=== PATIENT | female | born 1985 | race Caucasian/White ===

== ENCOUNTER 2020-03-04 05:45 | Day surgery (SDC) | payer OTHER ==
[2020-03-01 09:36] LABS: HEMATOCRIT 40.7 % (36.0-47.0); HEMOGLOBIN 14.3 g/dL (12.0-15.5); MEAN CORPUSCULAR HGB CONC 35.2 g/dL (32.0-36.0); MEAN CORPUSCULAR VOLUME 94 fl (80-97); PLATELET COUNT 335 10^3/uL (150-450); RED BLOOD COUNT 4.34 10^6/uL (3.72-5.28); RED CELL DISTRIBUTION WIDTH 12.8 % (11.5-14.0); WHITE BLOOD COUNT 6.4 10^3/uL (4.0-10.5)
[2020-03-01 09:42] LABS: APPEARANCE,URINE CLEAR; BILIRUBIN,URINE NEGATIVE (NEGATIVE); COLOR,URINE YELLOW; GLUCOSE, URINE NEGATIVE (NEGATIVE); KETONES,URINE NEGATIVE (NEGATIVE); LEUKOCYTE ESTERASE,URINE NEGATIVE (NEGATIVE); NITRITE,URINE NEGATIVE (NEGATIVE); PROTEIN,URINE NEGATIVE (NEGATIVE); URINE SPECIFIC GRAVITY 1.012; UROBILINOGEN,URINE NEGATIVE mg/dL (<2.0)
[2020-03-01 10:00] LABS: ANION GAP 9 (5-19); BLOOD UREA NITROGEN 15 mg/dL (7-20); CALCIUM 9.6 mg/dL (8.4-10.2); CARBON DIOXIDE 25 mmol/L (22-30); CHLORIDE 105 mmol/L (98-107); GLUCOSE 89 mg/dL (75-110)
[~2020-03-04 05:45] MED LIST: LACTATED RINGERS 1000 ML IV PRN; LIDOCAINE 0.5% INJ-PF (5 MG/ML) 50 ML SDV SUBCUT PRN
[2020-03-04] MEDS ORDERED: MIDAZOLAM 2 MG/2 ML INJ ONE (06:51)
[2020-03-04] MEDS ORDERED: FENTANYL CITRATE INJ/PF 100 MCG/2 ML AMPUL ONE ×2 (06:51→09:16)
[2020-03-04] MEDS ORDERED: PROPOFOL INJ 200 MG/20 ML VIAL IV ONE (06:51)
[2020-03-04] MEDS ORDERED: CLINDAMYCIN 600 MG/D5W RTU 600 MG/50 ML RTUPB IV ONE (07:07)
[2020-03-04] MEDS ORDERED: CLINDAMYCIN 600 MG/D5W RTU 600 MG/50 ML RTUPB IV PRN (07:09)
[2020-03-04] MEDS ORDERED: ONDANSETRON HCL INJ/PF 4 MG/2 ML SDV IV PRN (07:37)
[2020-03-04] MEDS ORDERED: DIPHENHYDRAMINE HCL 50 MG/ML VIAL IV PRN (07:37)
[2020-03-04] MEDS ORDERED: MEPERIDINE HCL/PF INJ 25 MG/1 ML DISP.SYRIN IV PRN (07:37)
[2020-03-04] MEDS ORDERED: OXYCODONE-ACETAMINOPHEN 5-325 MG TABLET PO PRN ×3 (07:37→10:00)
[2020-03-04] MEDS ORDERED: PROMETHAZINE HCL INJ 25 MG/1 ML VIAL IV PRN ×2 (07:37)
[2020-03-04] MEDS ORDERED: FENTANYL CITRATE INJ/PF 100 MCG/2 ML AMPUL IV PRN ×3 (07:37)
[2020-03-04] MEDS ORDERED: LIDOCAINE 1% INJ-PF (10 MG/ML) 30 ML SDV ONE (07:55)
--- NOTE | 2020-03-04 09:07 | Operative Report ---
Operative Report DATE OF SURGERY: 03/04/20 PREOPERATIVE DIAGNOSIS: Desires sterilization POSTOPERATIVE DIAGNOSIS: Same OPERATION: Open laparoscopy, bilateral Filshie clip sterilization SURGEON: YUDELKA FIGUEROA ANESTHESIA: GA TISSUE REMOVED OR ALTERED: None COMPLICATIONS: None INTRAOPERATIVE FINDINGS: Normal normal pelvis and upper abdomen, bladder was drained preoperatively PROCEDURE: The usual risks, benefits, expectations and complications of bleeding, infection, anesthesia and damage to other organs have been explaed and understood. No guarantee of permanent sterilization have been made with a risk of of about 1/150/10 years with this procedure. After surgical time out, exam under anesthesia, hulka tenaculum placed, and bladder catheterization ensued. Normal anatomy was noted. The surgeon re-gloved and via an infraumbilical incision thru the subq fat and fascia, the peritoneum was encountered and entered uneventfully. Orgin cannula placed and inflated. The pelvis and upper abdomen was examined, a second 5 mm port placed 3 fingerbreadths above symphysis under direct visualization, the tubes identified in their entirety and filshie clips placed on the antimesenteric side 1 cm from the uterine fundus bilaterally. A missed applied Filshie clip was recovered from the pelvis after the attempt on the right uneventfully and a new set of clips was used for completion of the procedure. The gas and instruments were removed, Fasci closed with O vicryl, subq with 3O gut
[2020-03-04] MEDS ORDERED: PROMETHAZINE HCL INJ 25 MG/1 ML VIAL IM PRN (10:00)
[2020-03-04] MEDS ORDERED: MORPHINE INJ 4 MG DOSE (EDIT ROUTE) INJ PRN (10:00)
[2020-03-04] MEDS ORDERED: DEXAMETHASONE SOD PHOSPHATE INJ 4 MG/1 ML VIAL ONE (11:48)
[2020-03-04] MEDS ORDERED: METOCLOPRAMIDE HCL INJ/PF 10 MG/2 ML SDV ONE (11:48)
[2020-03-04] MEDS ORDERED: SUCCINYLCHOLINE CHLORIDE INJ 200 MG/10 ML VIAL ONE (11:48)
[2020-03-04] MEDS ORDERED: LIDOCAINE 2% INJ-PF (20 MG/ML) 2 ML AMPUL ONE (11:48)
[2020-03-04] MEDS ORDERED: KETOROLAC TROMETHAMINE 60 MG/2 ML SDV ONE (11:48)
[2020-03-04] MEDS ORDERED: ONDANSETRON HCL INJ/PF 4 MG/2 ML SDV ONE (11:48)
[2020-03-04] MEDS ORDERED: IBUPROFEN 800 MG TABLET PO SCH (14:00)
[2020-03-04 14:55] VITALS: BP 117/80
== END 2020-03-04 11:00 | disposition home or self-care (01) ==
LOC: OROUT 05:45
PROVIDERS: ATTEND Specialist
DX: Z30.2 Encounter for sterilization (principal); Z01.812 Encounter for preprocedural laboratory examination; Z20.822 Contact with and (suspected) exposure to COVID-19
CPT/HCPCS: 58671; 86900; 86901; 36415; 86850; 85027; 87635; 81025; 80048; 81001; J2250; J1100; J1885; J3010; J3490 ×2; J2765; J0330; J2405; J2704; C9803; 851